=== PATIENT | female | born 1995 | race Two or more races ===

== ENCOUNTER 2022-05-25 09:55 | Emergency (ER) | payer OTHER ==
[~2022-05-25] VITALS: Ht 170.2 cm; Wt 62.6 kg
[2022-05-25] MEDS ORDERED: ZOFRAN8 MG PO (10:09)
== END 2022-05-25 17:04 | disposition home or self-care (01) ==
LOC: ER 09:55
DX: O20.9 Hemorrhage in early pregnancy, unspecified (principal); Z3A.01 Less than 8 weeks gestation of pregnancy

== ENCOUNTER 2022-06-29 14:36 | Outpatient (CLI) | payer OTHER ==
[~2022-06-29 14:36] MED LIST: ZOFRAN8 MG PO
== END 2022-06-29 15:16 | disposition home or self-care (01) ==
LOC: PRENATAL 14:36
PROVIDERS: ATTEND Obstetrics & Gynecology Maternal & Fetal Medicine
DX: O36.80X0 Pregnancy with inconclusive fetal viability, not applicable or unspecified (principal); Z36.0 Encounter for antenatal screening for chromosomal anomalies; Z3A.12 12 weeks gestation of pregnancy

== ENCOUNTER 2022-08-23 12:44 | Outpatient (CLI) | payer OTHER | END 2022-08-23 14:25 | disposition home or self-care (01) | LOC: PRENATAL 12:44 | PROVIDERS: ATTEND Obstetrics & Gynecology Maternal & Fetal Medicine | DX: O35.0XX0 Maternal care for (suspected) central nervous system malformation in fetus, not applicable or unspecified (principal); O35.3XX0 Maternal care for (suspected) damage to fetus from viral disease in mother, not applicable or unspecified; Z3A.20 20 weeks gestation of pregnancy ==

== ENCOUNTER 2022-11-23 09:18 | Outpatient (CLI) | payer OTHER | END 2022-11-23 10:16 | disposition home or self-care (01) | LOC: PRENATAL 09:18 | PROVIDERS: ATTEND Obstetrics & Gynecology Maternal & Fetal Medicine | DX: O36.8199 Decreased fetal movements, unspecified trimester, other fetus (principal) ==

== ENCOUNTER 2022-12-30 13:30 | Inpatient (IN) | payer OTHER ==
[~2022-12-30] VITALS: Ht 170.2 cm; Wt 65.8 kg
[2022-12-31] MEDS ORDERED: PRENATAL TABLE1 EAC4 PO (05:16)
[2022-12-31] MEDS ORDERED: FOLIC ACID20 MG PO (05:16)
== END 2023-01-02 13:46 | disposition home or self-care (01) | DRG 807 ==
LOC: LDR 12-31 06:03 → OB/GYN 12-31 11:07
PROVIDERS: ADMIT Obstetrics & Gynecology; ATTEND Obstetrics & Gynecology
PROC: 10E0XZZ Delivery of Products of Conception, External Approach (ICD-10-PCS; principal; 2022-12-31)
PROC: 0KQM0ZZ Repair Perineum Muscle, Open Approach (ICD-10-PCS; 2022-12-31)
PROC: 4A1HXCZ Monitoring of Products of Conception, Cardiac Rate, External Approach (ICD-10-PCS; 2022-12-31)
DX: O70.1 Second degree perineal laceration during delivery (principal); Z37.0 Single live birth; Z3A.38 38 weeks gestation of pregnancy; Z20.822 Contact with and (suspected) exposure to COVID-19